=== PATIENT | female | born 2000 | race Caucasian/White ===

== ENCOUNTER 2024-06-04 17:44 | Observation (INO) ==
[2024-06-04 18:40] LABS: ABS Lymphocytes 2.1 10^3/uL (1.0-4.8); ABS Monocytes 1.1 10^3/uL (0.0-0.9); ABS Neutrophils 10.5 10^3/uL (1.5-7.6); ABS Nucleated RBC 0.01 10^3/ul; Hematocrit 38.5 % (35-45); Lymphocyte % 15.6 %; Mean Corpuscular Hemoglobin 28.9 pg (27-33); Mean Corpuscular Hgb Conc 33.7 g/dL (31-36); Mean Corpuscular Volume 85.9 fL (80-97); Mean Platelet Volume 8.6 fL (7.5-11.2); Nucleated Red Blood Cells % 0.1 %/100WBC (0.0-0.8); Platelet Count 236 10^3/uL (150-450); Red Blood Count 4.49 10^6/uL (3.63-4.92); Red Cell Distribution Width 13.2 % (12-17); White Blood Count 13.7 10^3/uL (3.8-11.8)
[2024-06-04 18:47] LABS: INR 1.03 (0.85-1.14)
[2024-06-04 19:05] LABS: High Sens Troponin Baseline 592 pg/mL (<15)
[2024-06-04] MEDS: Lactated Ringers 1000 ml BAG 1,000 ML IV ONE ×2 (19:08→19:49)
[2024-06-04 19:21] LABS: ALT 20 U/L (7-52); AST 33 U/L (13-39); Albumin 4.5 g/dL (3.2-5.2); Albumin/Globulin Ratio 1.5 (1-3); Alkaline Phosphatase 57 U/L (35-149); Anion Gap 11 mmol/L (2-16); Blood Urea Nitrogen 16 mg/dL (6-24); CO2 Carbon Dioxide 22 mmol/L (22-32); Calcium 9.5 mg/dL (8.6-10.3); Chloride 103 mmol/L (101-111); Creatinine, Serum 0.99 mg/dL (0.51-0.95); Glucose 91 mg/dL (70-100); Potassium 4.1 mmol/L (3.5-5.0); Sodium 136 mmol/L (135-145); Total Bilirubin 0.6 mg/dL (0.2-1.0); Total Protein 7.5 g/dL (6.4-8.9); eGFR CKD-EPI 83.2 (>60)
[2024-06-04 19:58] LABS: Creatine Kinase 894 U/L (10-223); Magnesium 2.2 mg/dL (1.9-2.7)
[2024-06-04 20:06] LABS: HCG Pregnancy < 0.60 mIU/mL
[2024-06-04 20:07] LABS: High Sensitivity Troponin 1 Hr 521 pg/mL (<15)
[2024-06-04] MEDS: Iohexol 350 (CONTRAST) 500 ML MDV IV ONE (21:47)
[2024-06-04 23:44] LABS: High Sensitivity Troponin 3 Hr 692 pg/mL (<15)
[2024-06-04] MEDS ORDERED: Sulfur Hexaflouride MICROSPHR 25 MG VIAL IV PRN (23:54)
[2024-06-05 06:26] LABS: ABS Eosinophils 0.1 10^3/uL (0.0-0.5); ABS Neutrophils 6.8 10^3/uL (1.5-7.6); Eosinophil % 1.2 %; Hematocrit 34.1 % (35-45); Hemoglobin 11.9 g/dL (11.5-14.3); Lymphocyte % 33.6 %; Mean Corpuscular Hemoglobin 30.1 pg (27-33); Mean Corpuscular Hgb Conc 34.9 g/dL (31-36); Mean Corpuscular Volume 86.3 fL (80-97); Mean Platelet Volume 8.8 fL (7.5-11.2); Platelet Count 206 10^3/uL (150-450); Red Blood Count 3.95 10^6/uL (3.63-4.92); Red Cell Distribution Width 12.8 % (12-17)
[2024-06-05 07:07] LABS: Calcium 8.5 mg/dL (8.6-10.3); Creatinine, Serum 0.94 mg/dL (0.51-0.95); Potassium 4.2 mmol/L (3.5-5.0); eGFR CKD-EPI 88.5 (>60)
[2024-06-05 08:02] LABS: High Sensitivity Troponin 1 Hr 324 pg/mL (<15)
[2024-06-05] MEDS: cefTRIAXone 1 gm/50 mL D5W 1 GM/50 ML BAG IV SCH (14:58)
[2024-06-05] MEDS: NS 0.9% 1000 ml BAG 1,000 ML IV SCH (14:59)
[2024-06-05] MEDS: Azithromycin 500 mg/250 ml NS 500 MG/250 ML BAG IVPB SCH (16:55)
[2024-06-05] MEDS: NORETHINDRONE E ESTRADIOL IRON PO SCH (21:14)
[2024-06-06 09:39] VITALS: BP 117/79
[2024-06-06] MEDS: Influenza Vaccine *TRI* 2024-25* 0.5 ML SYRINGE IM ONE (10:28)
== END 2024-06-06 15:05 | disposition home or self-care (01) ==
LOC: EDHOLD 17:44 → ED 17:44 → MEDTELE 06-05 12:11
PROVIDERS: ADMIT Hospitalist; ATTEND Hospitalist